=== PATIENT | male | born 1975 | race Hispanic/Latino ===

== ENCOUNTER 2022-07-05 15:16 | Emergency (ER) | payer OTHER ==
[~2022-07-05] VITALS: Ht 165.1 cm; Wt 866.4 kg
[2022-07-05 17:41] LABS: BASOPHILS % (AUTO) 0.2 % (0.0-5.0); EOSINOPHILS % (AUTO) 0.8 % (0.0-8.0); HEMATOCRIT 39.1 % (42-54); LYMPHOCYTES % (AUTO) 26.5 % (21.0-51.0); MEAN CORPUSCULAR HEMOGLOBIN 30.2 pg (27.0-33.0); MEAN CORPUSCULAR VOLUME 91.6 fL (79-99); MONOCYTES % (AUTO) 7.5 % (3.0-13.0); NEUTROPHILS % (AUTO) 64.4 % (40.0-77.0); PLATELET COUNT (AUTO) 310 K/uL (130-400); RED BLOOD CELL COUNT(AUTO) 4.27 MIL/uL (4.50-6.20); RED CELL DISTRIBUTION WIDTH 13.8 % (11.0-15.5)
[2022-07-05 17:49] LABS: CREATININE 1.5 mg/dL (0.5-1.5); POTASSIUM 4.6 mmol/L (3.5-5.1)
[2022-07-05 17:51] LABS: INR 0.93 (0.85-1.15); PROTHROMBIN TIME 9.8 SEC (9.6-11.6)
[2022-07-05 17:52] LABS: PARTIAL THROMBOPLASTIN TIME 29.7 SEC (26.3-35.5)
[2022-07-05 17:58] LABS: TOTAL PROTEIN, SERUM 7.3 g/dL (6.0-8.3)
[2022-07-05] MEDS ORDERED: KETOROLAC 30MG VIAL (30MG/ML) IM ONE (19:00)
[2022-07-05] MEDS ORDERED: MORPHINE 2 MG SYG IM ONE (21:00)
[2022-07-05] MEDS ORDERED: CLONIDINE HCL 0.1 MG TABLET ONE (22:21)
[2022-07-05] MEDS: CLONIDINE HCL 0.1 MG TABLET PO SCH ×2 (22:21→22:22)
[2022-07-05] MEDS ORDERED: LABETALOL 20MG VIAL IV ONE ×2 (22:24→22:30)
[2022-07-06] MEDS ORDERED: 0.9%NACL 1000ML 1,000 ML IV SCH
[2022-07-06 00:26] VITALS: BP 153/75
== END 2022-07-06 00:32 | disposition home or self-care (01) ==
LOC: EDH 15:16
DX: R51.9 Headache, unspecified (principal); I10 Essential (primary) hypertension; I25.10 Atherosclerotic heart disease of native coronary artery without angina pectoris; E11.9 Type 2 diabetes mellitus without complications; E78.5 Hyperlipidemia, unspecified; Z95.1 Presence of aortocoronary bypass graft; Z20.822 Contact with and (suspected) exposure to COVID-19
CPT/HCPCS: 99285; 96374; 70450; 71045; 87635; 96361; 84484; 80053; 85025; 85610; 85730; 36415; 96372; 93005; C9803; J7030; J3490

== ENCOUNTER 2024-03-07 07:20 | Emergency (ER) | payer BC ==
[~2024-03-07] VITALS: Ht 165.1 cm; Wt 89.4 kg
[~2024-03-07 07:20] MED LIST: AEC81 PO; AMLO5TAB4 PO; ATOR40TA69 PO; HUM100IN SQ; LISI20TA24 PO; METO25 PO
[2024-03-07 07:22] VITALS: TEMP 98.3
[2024-03-07] MEDS: ketOROlac 30MG VIAL (30MG/ML) IM ONE (08:35)
[2024-03-07] MEDS: morPHINE 4 MG SYG IM ONE (08:51)
[2024-03-07 10:15] LABS: BASOPHILS # (AUTO) 0.02 K/uL (0.00-0.20); BASOPHILS % (AUTO) 0.2 % (0.0-5.0); EOSINOPHILS # (AUTO) 0.07 K/uL (0.00-0.70); EOSINOPHILS % (AUTO) 0.8 % (0.0-8.0); HEMATOCRIT 38.8 % (42-54); IMMATURE GRANULOCYTE ABSOLUTE 0.02 K/uL (0-1); LYMPHOCYTES # (AUTO) 3.2 K/uL (1.0-4.8); LYMPHOCYTES % (AUTO) 36.6 % (21.0-51.0); MEAN CORPUSCULAR HEMOGLOBIN 31.1 pg (27.0-33.0); MEAN CORPUSCULAR HGB CONC 32.7 g/dL (32.0-36.0); MEAN CORPUSCULAR VOLUME 94.9 fL (79-99); MONOCYTES # (AUTO) 0.7 K/uL (0.1-1.0); MONOCYTES % (AUTO) 7.9 % (3.0-13.0); NEUTROPHILS # (AUTO) 4.7 K/uL (1.8-7.7); NEUTROPHILS % (AUTO) 54.3 % (40.0-77.0); PLATELET COUNT (AUTO) 262 K/uL (130-400); RED BLOOD CELL COUNT(AUTO) 4.09 MIL/uL (4.50-6.20); RED CELL DISTRIBUTION WIDTH 13.8 % (11.0-15.5); WHITE BLOOD COUNT (AUTO) 8.7 K/uL (4.8-10.8)
[2024-03-07 10:36] LABS: CREATININE 1.9 mg/dL (0.5-1.3); POTASSIUM 3.8 mmol/L (3.5-5.1)
[2024-03-07] MEDS ORDERED: PENI500T2 PO (11:00)
[2024-03-07] MEDS ORDERED: ACET-2079 PO (11:00)
[2024-03-07] MEDS: HYDROcodone/APAP 5/325 1 TAB TABLET PO ONE (11:15)
[2024-03-07] MEDS: PENICILLIN V POTASSIUM 500 MG TABLET PO ONE (11:15)
[2024-03-07 11:44] VITALS: BP 156/75; PULSE 77; RESP 17; O2SAT 97
== END 2024-03-07 11:46 | disposition home or self-care (01) ==
LOC: EDH 07:20
DX: K08.89 Other specified disorders of teeth and supporting structures (principal); K02.9 Dental caries, unspecified; I12.9 Hypertensive chronic kidney disease with stage 1 through stage 4 chronic kidney disease, or unspecified chronic kidney disease; E11.22 Type 2 diabetes mellitus with diabetic chronic kidney disease; N18.9 Chronic kidney disease, unspecified; I25.10 Atherosclerotic heart disease of native coronary artery without angina pectoris; E78.00 Pure hypercholesterolemia, unspecified; Z79.4 Long term (current) use of insulin; Z79.82 Long term (current) use of aspirin; Z79.899 Other long term (current) drug therapy; Z95.1 Presence of aortocoronary bypass graft
CPT/HCPCS: 99284; 80048; 85025; 36415; 96372 ×2; J2270; J1885